=== PATIENT | female | born 1945 | race Caucasian/White ===

== ENCOUNTER 2018-10-18 20:20 | Emergency (ER) | payer MEDICARE ==
[~2018-10-18] VITALS: Ht 154.9 cm; Wt 59.0 kg
[~2018-10-18 20:20] MED LIST: ADDERALL 20 MG20 MG ORAL; BUPROPION HCL150 M3 ORAL; BUSPIRONE HCL15 MG ORAL; FLUOXETINE HCL40 MG ORAL; FUROSEMIDE40 MG ORAL; GABAPENTIN100 MG ORAL; LEVOTHYROXINE100 MCG ORAL; LISINOPRIL10 MG ORAL; METOPROLOL SUCC25 MG ORAL; METOPROLOL TART50 M1 ORAL; NAPROXEN500 M2 ORAL; POTASSIUM CHLO20 ME2 ORAL
[2018-10-18 20:25] VITALS: BP 156/82
--- NOTE | 2018-10-18 20:25 | NUR ---
ED Nurse Note: Patient BIBA Sq[facility] from home c/o cough and SOB for 2x weeks. Patient O2 sat of 95% on RA, 100% on 8lpm via nebulizer. 5mg albuterol given on the scene, pt stated she still has difficulty breathing. seen by ermd. breathing treatment being done by rt. pt connected to monitor. vital signs within normal limits. will continue to monitor.
[2018-10-18] MEDS ORDERED: DIGOXIN0.125 MG/2 ORAL (20:55)
[2018-10-18] MEDS ORDERED: ELIQUIS5 MG PO (20:55)
[2018-10-18] MEDS ORDERED: GABAPENTIN100 MG ORAL (20:55)
[2018-10-18] MEDS ORDERED: PROTONIX40 MG ORAL (20:55)
[2018-10-18] MEDS ORDERED: Albuterol ud Inhalation HHN ONE (21:00)
[2018-10-18] MEDS ORDERED: Solu-MEDROL 125mg Inj IVP ONE (21:00)
--- NOTE | 2018-10-18 21:01 | Emergency Room Report ---
History of Present Illness General Chief Complaint: Dyspnea/Respdistress Source: Patient, Medical Record Present Illness HPI Is a 72-year-old female with a history of A. fib, currently taking Eliquis. She said she been feeling short of breath for the last few weeks. Worse the last week. She's been out of her Lasix for a few weeks she said. No nausea no vomiting but worse with exertion. Worse with lying flat. Also with increasing edema. Has chest tightness secondary to short of breath. No fever chills but no nausea no vomiting. Denies any other complaint. Allergies: Coded Allergies: No Known Allergies (Unverified , 04/29/16) Patient History Past Medical History: see triage record, old chart reviewed, HTN, CAD, CHF, AFib, COPD Past Surgical History: other Pertinent Family History: none Social History: Denies: smoking Last Menstrual Period: THEODORE Now: No Immunizations: other Reviewed Nursing Documentation: PMH: Agreed; PSxH: Agreed Nursing Documentation-PMH Hx Cardiac Problems: Yes - Left heart failure, high cholesterol Hx Hypertension: Yes Hx Pacemaker: No - thyroid disease Hx Asthma: Yes Hx Gastrointestinal Problems: Yes - Bipolar disorder and depression Hx Dialysis: No - STAGE 4 KIDNEY DISEASE Hx Neurological Problems: No Hx Syncope: Yes Review of Systems Constitutional: Reports: malaise Eye: Denies: eye pain, blurred vision ENT: Denies: ear pain, nose congestion, throat swelling Respiratory: Reports: cough, shortness of breath Cardiovascular: Denies: chest pain, palpitations Gastrointestinal: Denies: abdominal pain, diarrhea, nausea, vomiting Musculoskeletal: Denies: back pain, joint pain Skin: Denies: rash Neurological: Denies: headache, numbness Endocrine: Denies: increased thirst, increased urine Hematologic/Lymphatic: Denies: easy bruising All Other Systems: negative except mentioned in HPI Physical Exam Vital Signs Date Time Temp Pulse Resp B/P (MAP) Pulse Ox O2 Delivery O2 Flow Rate FiO2 10/18/18 20:21 98.2 88 20 156/82 98 Simple Mask 8.0 vitals with hypoxia Sp02 EP Interpretation: reviewed, abnormal General Appearance: alert, moderate distress, Chronically Ill Head: normocephalic, atraumatic Eyes: bilateral eye PERRL, bilateral eye EOMI ENT: hearing grossly normal, normal pharynx Neck: full range of motion, supple, no meningismus Respiratory: chest non-tender, respiratory distress, decreased breath sounds, rales, wheezing Cardiovascular #1: regular rate, rhythm, no murmur Gastrointestinal: normal bowel sounds, non tender, no mass, no organomegaly, no bruit, non-distended Musculoskeletal: back normal, gait/station normal, normal range of motion, swelling - 2+ pitting edema Neurologic: alert, oriented x3 Psychiatric: mood/affect normal Skin: warm/dry Procedures Critical Care Time Critical Care Time Critical care is mandated in this patient who presented with respiratory distress secondary to CHF. Patient require my urgent intervention to attenuate the risks of respiratory collapse which may lead to cardiovascular collapse and . Critical care time is 35 minutes excluding any reportable procedure. Critical care time included evaluation, multiple reevaluation, looking at old charts, interpreting laboratory and diagnostic data, discussing case with patient and family and consultants, and charting. Medical Decision Making Diagnostic Impression: Primary Impression: Acute respiratory failure with hypoxia Additional Impressions: Pulmonary edema Qualified Codes: J81.0 - Acute pulmonary edema CHF exacerbation Qualified Codes: I50.9 - Heart failure, unspecified Atrial fibrillation, rapid Anemia Qualified Codes: D64.9 - Anemia, unspecified UTI (urinary tract infection) Qualified Codes: N30.00 - Acute cystitis without hematuria Proteinuria Qualified Codes: R80.9 - Proteinuria, unspecified ER Course This patient presents with respiratory distress secondary to CHF/pulmonary edema. Initially, she was in sinus rhythm but developed rapid A. fib. Rate was controlled with Cardizem. Blood pressure has been stable. She urinated well and felt better. Did not require more than oxygen via nasal cannula. Patient is anemic but slightly worse from baseline. At this moment in time, she is stable for transfer to [facility] because of her insurance. I discussed the case with Dr. Jesús Buchanan who accepted the patient for transfer. I see no evidence of pneumonia, PE, dissection to name a few. Her CHF is probably worsened by lack of diuretic and intermittent A. fib. Lab Results Impression labs with anemia, elevated BNP EKG Diagnostic Results Rate: normal Rhythm: NSR ST Segments: other - NSST changes Other Impression EKG #2: Interpreted by me. A atrial fibrillation RVR at 127. No specific ST changes Rhythm Strip Diag. Results Rhythm Strip Time: 21:01 EP Interpretation: yes Rate: 89 Rhythm: NSR, no PVC's, no ectopy Chest X-Ray Diagnostic Results Chest X-Ray Diagnostic Results : Chest X-Ray Ordered: Yes # of Views/Limited/Complete: 1 View Indication: Shortness of Breath EP Interpretation: Yes Interpretation: no pneumothorax, other - Car admittedly with pulmonary edema Impression: Other - CM with chf Electronically Signed by: Carlos Montes MD Last Vital Signs Date Time Temp Pulse Resp B/P (MAP) Pulse Ox O2 Delivery O2 Flow Rate FiO2 10/18/18 20:21 98.2 88 20 156/82 98 Simple Mask 8.0 Status: improved Disposition: XFER SHT-TRM HOSP Condition: Stable Carlos Montes MD Oct 18, 2018 21:01
[2018-10-18 21:19] LABS: HEMATOCRIT 24.4 % (37.0-47.0); MEAN CORPUSCULAR VOLUME 79 FL (80-99); PLATELET COUNT 446 K/UL (150-450); RED BLOOD COUNT 3.09 M/UL (4.20-5.40); RED CELL DISTRIBUTION WIDTH 19.3 % (11.6-14.8); WHITE BLOOD COUNT 12.7 K/UL (4.8-10.8)
[2018-10-18 21:28] LABS: APPEARANCE,URINE CLEAR; BILIRUBIN, URINE NEGATIVE (NEGATIVE); COLOR,URINE PALE YELLOW; GLUCOSE, URINE (UA) NEGATIVE (NEGATIVE); KETONES,URINE NEGATIVE (NEGATIVE); LEUKOCYTE ESTERASE ,URINE 2+ (NEGATIVE); NITRITE,URINE POSITIVE (NEGATIVE); PH,URINE 5 (4.5-8.0); PROTEIN,URINE 3+ (NEGATIVE); UROBILINOGEN,URINE NORMAL MG/DL (0.0-1.0)
[2018-10-18 21:31] LABS: INR 1.1 (0.9-1.1)
[2018-10-18 21:34] LABS: ANION GAP 12 mmol/L (5-15); BLOOD UREA NITROGEN 21 mg/dL (7-18); CALCIUM 8.7 MG/DL (8.5-10.1); CARBON DIOXIDE 22 MMOL/L (21-32); CHLORIDE 106 MMOL/L (98-107); CREATININE 1.2 MG/DL (0.55-1.30); POTASSIUM 4.4 MMOL/L (3.5-5.1); SODIUM 140 MMOL/L (136-145)
--- NOTE | 2018-10-18 21:40 | NUR ---
Note rae in EDM - 10/18/18 at 2148 by [email or web address] ED Nurse Note: PO challenge done per ERMD order, pt tolerated well, no n/v.
[2018-10-18] MEDS ORDERED: cefTRIAXone 1 GM in NS 55 ML IVPB ONE (21:45)
[2018-10-18 21:49] LABS: ALANINE AMINOTRANSFERASE 21 U/L (12-78); ALBUMIN 2.7 G/DL (3.4-5.0); ALBUMIN/GLOBULIN RATIO 0.6 (1.0-2.7); ALKALINE PHOSPHATASE 90 U/L (46-116); ASPARTATE AMINO TRANSFERASE 24 U/L (15-37); BILIRUBIN,TOTAL 0.5 MG/DL (0.2-1.0)
[2018-10-18] MEDS ORDERED: dilTIAZem HCl 25mg/5ml Inj IVP ONE ×2 (22:15→22:45)
[2018-10-18 22:22] VITALS: BP 158/95
--- NOTE | 2018-10-18 23:16 | NUR ---
ED Nurse Note: called report to [facility], report given to philly singh.
[2018-10-18 23:24] VITALS: BP 100/80
[2018-10-18 23:45] VITALS: BP 100/80
--- NOTE | 2018-10-18 23:45 | NUR ---
ED Nurse Note: pt was [id number] to [facility] via gurney from [facility] with 2 emt and rn. pt left with stable vitals signs and with all her belongings.
--- NOTE | 2018-10-19 10:39 | Diagnostic Imaging Report ---
Indication: Shortness of breath Technique: One view of the chest Comparison: 04/29/2016 Findings: Interim development of bilateral interstitial and airspace edema. The heart is borderline enlarged. There may be small bilateral pleural effusions as well. Surgical clips project over the right chest. Degenerative changes of the left shoulder are noted, have progressed since the previous exam. Impression: Bilateral interstitial and airspace edema, new since prior study of 04/29/2016 Borderline cardiomegaly Possible small bilateral pleural effusions
--- NOTE | 2018-10-19 12:38 | Cardiology Report ---
APPROVED REPORT EKG Measurement Heart [id number] Normal sinus rhythm Nonspecific ST abnormality Abnormal ECG
--- NOTE | 2019-04-15 12:20 | Cardiology Report ---
APPROVED REPORT EKG Measurement Heart [id number] Atrial fibrillation with rapid ventricular response Nonspecific ST and T wave abnormality Abnormal ECG
== END 2018-10-18 23:45 | disposition short-term general hospital (02) ==
LOC: EDBD 20:20 → EDUNIT# 20:20 → EDBEDREQ 21:11 → EMR 21:54
DX: J96.01 Acute respiratory failure with hypoxia (principal); J81.1 Chronic pulmonary edema; I13.0 Hypertensive heart and chronic kidney disease with heart failure and stage 1 through stage 4 chronic kidney disease, or unspecified chronic kidney disease; I50.9 Heart failure, unspecified; N18.4 Chronic kidney disease, stage 4 (severe); I48.91 Unspecified atrial fibrillation; D64.9 Anemia, unspecified; N39.0 Urinary tract infection, site not specified; R80.9 Proteinuria, unspecified; I25.10 Atherosclerotic heart disease of native coronary artery without angina pectoris; J44.9 Chronic obstructive pulmonary disease, unspecified; Z79.02 Long term (current) use of antithrombotics/antiplatelets
CPT/HCPCS: 36415; 71045; 80053; 80162; 81003; 83880; 84484; 85007; 85025; 85610; 85730; 87086; 87181; 93005; 94640; 94664; 96365; 96375; 99291; J0696; J1940